=== PATIENT | female | born 1990 | race Two or more races ===

== ENCOUNTER 2019-11-10 19:26 | Emergency (ER) | payer MEDICAID, OTHER ==
[~2019-11-10] VITALS: Ht 165.1 cm; Wt 99.8 kg
[2019-11-10 23:26] VITALS: BP 151/75
[2019-11-10] MEDS ORDERED: HYDROcodone-ACET 5/325MG TAB PO ONE (23:30)
== END 2019-11-10 23:43 | disposition home or self-care (01) ==
LOC: ER 19:26
DX: M79.672 Pain in left foot (principal); M79.671 Pain in right foot; X58.XXXA Exposure to other specified factors, initial encounter; Y93.01 Activity, walking, marching and hiking; Y92.89 Other specified places as the place of occurrence of the external cause; Y99.8 Other external cause status